=== PATIENT | female | born 1980 ===

== ENCOUNTER 2022-04-02 18:29 | Emergency (ER) | payer OTHER, SELFPAY ==
--- OUTSIDE RECORDS SUMMARY | 2022-04-02 19:15 | XMS_ITS | Continuity of Care Document ---
:1980 Author Organization [facility] ter Address Unavailable , Care Team Providers Name Role Phone No PCP, No PCP Primary Care Physician Unavailable Encounter Date(s): 05/29/21 - 05/29/21 [facility] [address] [place], [place] [address] Discharge Disposition: Home or Self Care Attending Physician: MARK GARCIA MD Admitting Physician: MARK GARCIA MD Allergies, Adverse Reactions, Alerts Substance Reaction Severity Status codeine Shortness of breath Active Hives amoxicillin hives Active severe vomiting penicillin Shortness of breath Active hives sulfa drugs hives Active severe vomiting oxyCODONE Hives Mild Active Vomiting Medications Misc Med 1tab, Oral, 6 Times Each Day, [employer] REMEDY for anxiety, 0 Refill(s) Start Date: 12/26/19 Status: Ordered Problem List Condition Effective Dates Status Health Status Informant Anxiety(Confirmed) Active Procedures Procedure Date Related Diagnosis Body Site Status exam under anesthesia evacuation of 03/05/20 Completed hematoma repair of vaginal cuff HYSTERECTOMY LAPAROSCOPIC WITH BSO AND 02/13/20 Completed CYSTOSCOPY NEEDLE CORE BX OF LEFT BREAST 2017 Completed D&C 2014 Completed cyst removal right knee 2012 Comp leted Social History Social History Type Response Smoking Status Never smoker entered on: 12/26/19 Sex Female
--- OUTSIDE RECORDS SUMMARY | 2022-04-02 19:15 | XMS_ITS ---
:1980 Author Care Team Providers Name Role Phone BRENDA HUTTON Primary Care Provider [phone] Allergies Code Code System Name Reaction Severity Status Onset 2670 RxNorm Codeine Vomiting ? Active ? PEN-VEE K Anaphylaxis ? Active ? Sulfa (Sulfonamide Hives ? Active ? Antibiotics) Medications Name Status Start Date Stop Date ? ? Ozempic 0.25 mg or 0.5 mg (2 mg/1.5 mL) subcutaneous pen injecto r Active ? Not available inject 0.5 milligrams subcutaneously every week Problems Name Status Onset Date Source ? Exercise-induced Asthma Active 06/27/2021 ? Cyst of Ovary Active 06/27/2021 ? Simple Endometrial Hyperplasia Unknown 06/27/2021 ? Ganglion Cyst Unknown 06/27/2021 ? Obese Active 08/27/2021 ? Procedures Date Name Performed by ? ? Excision of Gallegos's Cyst of Knee Informa tion not available ? Hysterectomy Information not avai lable Notes: 01/2020 Results Lab Results Date Name Specimen Result Interpretation Description Value Range Status Address ? 08/13/2021 CBC W/ Auto ? CBC Auto Diff ? ? Final [place] Diff W Reflex Hospital Lab: [address] [place] ? ? ? Wbc 9.5 x10^3 4.5 - Final [facility]eld 11.0 Hospital x10^3 Lab: [address] [place] ? ? ? Rbc 4.26 3.70 - Final [place] x10^6 5.10 Hospital x10^6 Lab: [address] [place] ? ? ? Hemoglobin 14.2 g/dL 11.0 - Final [facility] 15.0 Hospital g/dL Lab: [address] [place] ? ? ? Hematocrit 43.4 % 34.0 - Final [facility] 46.0 % Hospital Lab: [address] [place] ? ? High Mcv 101.9 fL 80.0 - Final [place] 100 fL Hospital Lab: [address], [place] ? ? High Mch 33.3 pg 25.0 - Final [place] 33.0 pg Hospital Lab: [address], [place] ? ? ? Mchc 32.7 g/dL 31.0 - Final [place] 36.0 Hospital g/dL Lab: [address], [place] ? ? ? Rdw 12.0 % 0.0 - Final [place] 15.0 % Hospital Lab: [address], [place] ? ? ? Platelets 271 x10^3 130 - Final [facility] 400 Hospital x10^3 Lab: [address], [place] ? ? ? %Neut 69 % 40 - 75 Final [place] % Hospital Lab: [address], [place] ? ? ? %Lymph 22 % 15 - 50 Final [place] % Hospital Lab: [address], [place] ? ? ? %Brown 8 % 0 - 10 % Final [place] [facility] Lab: [address], [place] ? ? ? %Eos 1 % 0 - 7 % Final [place] [facility] Lab: [address], [place] ? ? ? %Baso 0 % 0 - 2 % Final [place] [facility] Lab: [address], [place] ? ? ? %Ig 0.4 % 0.0 - Final [place] 2.0 % Hospital Lab: [address], [place] ? ? ? %Nrbc 0 % 0 - 2 % Final [place] [facility] Lab: [address], [place] ? ? ? #Neut 6.5 x10^3 1.8 - Final [place] 7.0 Hospital x10^3 Lab: [address], [place] ? ? ? #Lymph 2.1 x10^3 1.0 - Final [place] 4.0 Hospital x10^3 Lab: [address], [place] ? ? ? #Brown 0.7 x10^3 0.0 - Final [place] 0.8 Hospital x10^3 Lab: [address], [place] ? ? ? #Eos 0.1 x10^3 0.0 - Final [place] 0.4 Hospital x10^3 Lab: [address], [place] ? ? ? #Baso 0.0 x10^3 0.0 - Final [place] 0.2 Hospital x10^3 Lab: [address] ? ? ? #Ig 0.0 x10^3 0.0 - Final [place] 0.1 Hospital x10^3 Lab: [address] [place] [address] ? ? ? #Nrbc 0.000 0.000 - Final [place] X10^3 0.012 Hospital X10^3 Lab: [address] ? ? ? Manual Diff not ? Final [place] [facility] Lab: [address] ? ? ? RBC Morph not ? Final [place] indicated [facility] Lab: [address] [place] [place] 08/13/2021 TSH, 2Nd ? Tsh 1.14 0.36 - Final [place] Generation, uIU/mL 3.74 Hospi jelena QN, Serum or uIU/mL Lab: [address] [place] 08/13/2021 T4, Free, ? T4 Free 0.92 0.76 - Final [place] Serum NG/dL 1.46 Hospital NG/dL Lab: [address] [place] 08/13/2021 CMP, Serum ? Comprehensive ? ? F inal [place] or Plasma Metab Panel Ho [facility] Lab: [address] [place] ? ? ? Glucose 92 mg/dL 74 - 106 Final [place] mg/dL Hospital Lab: [address] [place] ? ? High Bun 19 mg/dL 7 - 18 Final [facility] eld mg/dL Hospital Lab: [address] ? ? ? Creatinine 0.83 0.55 - Final [place] mg/dL 1.02 Hospital mg/dL Lab: [address] [place] ? ? ? Sodium 136 136 - Final [facility] mmol/L 145 Hospital mmol/L Lab: [address], [place] ? ? ? Potassium 4.5 3.5 - Final [facility] mmol/L 5.1 Hospital mmol/L Lab: [address] [place] [address] ? ? ? Chloride 100 98 - 107 Final [place] mmol/L mmol/L Hospital Lab: [address], [place] ? ? ? Co2 28 mmol/L 21 - 32 Final [facility] mmol/L Hospital Lab: [address], [place] ? ? ? Calcium 9.3 mg/dL 8.5 - Final [facility] 10.1 [facility] mg/dL Lab: [address], [place] ? ? ? Total Protein 8.0 g/dL 6.4 - Final [place] 8.2 g/dL Hospital Lab: [address], [place] ? ? ? Albumin 4.1 g/dL 3.4 - Final [facility] 5.0 g/dL Hospital Lab: [address], [place] ? ? ? Total Bili 0.4 mg/dL 0.2 - Final [facility] 1.0 [facility] mg/dL Lab: [address], [place] ? ? ? Alkaline Phos 75 U/L 46 - 116 Final [place] U/L [facility] Lab: [address], [place] ? ? ? SGPT/ALT 35 U/L 12 - 78 Final [facility] U/L [facility] Lab: [address], [place] ? ? ? SGOT/AST 21 U/L 0 - 40 Final [facility] U/L [facility] Lab: [address], [place] ? ? ? Age 40 yrs ? Final [facility] Lab: [address], [place] ? ? ? Egfr Non-afr 75 ? Final [facility] Lab: [address], [place] ? ? ? eGFR Afr-amer 91 ? Final [facility] Lab: [address], [place] 08/13/2021 Borrelia Blood ? Lyme Antibody negative negative Final [place] [facility], Qual Lab: [address], [address], [place] Past Encounters Encounter Date Diagnosis Provider 09/26/2021 Obese BRENNEN Umana C: [address] [facility] [phone], Ph. 08/27/2021 Obese BRENNEN Umana C: [address] [facility] [phone], Ph. 08/13/2021 Seen in Primary Care Establishment; Lorenza Chen, PAC: [address] [facility], [facility] [phone], Ph. 05/16/2021 Elevated Blood Pressure Juana Dobbs , PAC: [address] [facility], [facility] [phone], Ph. Social History Tobacco Smoking Status Former Smoker Notes: intermit tent since 19 years old stopped about 5 year s ago -- 1 pack would last 3 months Vaccine List None recorded. Plan of Care Reminders Provider Appointments None recorded. ? ? Lab None recorded. ? ? Referral None recorded. ? ? Procedures None recorded. ? ? Surgeries None recorded. ? ? Imaging None recorded. ? ? Vitals 08/13/2021 02:00PM NEW PATIENT 38 Weight Blood Pressure 86.18 kg 112/80 mm[Hg] 05/16/2021 04:40PM WALK IN VISIT Weight Blood Pressure 84.82 kg (1) 135/92 mm[Hg] (2) 118/82 mm[Hg]
--- OUTSIDE RECORDS SUMMARY | 2022-04-02 19:15 | XMS_ITS | Continuity of Care Document ---
:1980 Author Organization [facility] ter Address Unavailable , Care Team Providers Name Role Phone No PCP, No PCP Primary Care Physician Unavailable Encounter Date(s): 12/01/21 - 12/01/21 [facility] [address] [place], [place] [address] [facility] Discharge Disposition: Home or Self Care Attending Physician: RAYMOND ARIAS MD Admitting Physician: RAYMOND ARIAS MD Allergies, Adverse Reactions, Alerts Substance Reaction [...] cyst removal right knee 2012 Comp leted Results Radiology Reports Exam Date Time Procedure Performing Provider Status 12/01/21 1:35 PM US Breast Limited RT - 63424 Mod ified US Breast Limited RT - [id number] PROCEDURE: US Breast Limited RT - [id number] CLINICAL INDICATION: s/t f/u RT breast 1.1 cm oval-shaped mass COMPARISON: Ultrasound 05/29/2021 FINDINGS: As seen on the prior study there is a homogeneous isoechoic mass in the right breast at the 3 to 4:00 position, 1- 2 cm from the nipple which measures approximately 1.2 x 1.5 x 1.2 cm. Given differences in imaging technique this has not significantly increased in size. No posterior acoustic shadowing. No new lesions are identified. IMPRESSION: Grossly unchanged appearance of a lesion in the right breast. BI-RADS 3 PROBABLY BENIGN Recommendation: Recommend 6 month follow-up ultrasound of the right breast. This can be performed at the time of the patient's annual mammographic screening. Electronically Signed by: Klaus Vaughan DO 12/01/2021 2:01 PM Social History Social History Type Response Smoking Status Never smoker entered on: 12/26/19 Sex Female US Breast - right limited Event Display: US Breast Limited RT - [id number] Authored Date: [id number] PROCEDURE: US Breast Limited RT - [id number] CLINICAL INDICATION: s/t f/u RT breast 1.1 cm oval-shaped mass COMPARISON: Ultrasound 05/29/2021 FINDINGS: As seen on the prior study there is a homogeneous isoechoic mass in the right breast at the 3 to 4:00 position, 1- 2 cm from the nipple which measures approximately 1.2 x 1.5 x 1.2 cm. Given differences in imaging technique this has not significantly increased in size. No posterior acoustic shadowing. No new lesions are identified. IMPRESSION: Grossly unchanged appearance of a lesion in the right breast. BI-RADS 3 PROBABLY BENIGN Recommendation: Recommend 6 month follow-up ultrasound of the right breast. This can be performed at the time of the patient's annual mammographic screening. Electronically Signed by: Klaus Vaughan DO 12/01/2021 2:01 PM Care Team Care Team PersonnelName: No PCP No PCP, Med Service: NO LOCAL PCP Member Role: Primary Care Physician Name: RAYMOND ARIAS MD Position: Physician - [employer] Member Role: Admitting Physician Address: Address: [address] [place] [phone] [place] Care Team Related PersonsName: LVARIELLEY Address: Home [address] [place] [phone]
--- OUTSIDE RECORDS SUMMARY | 2022-04-02 19:15 | XMS_ITS | Continuity of Care Document ---
:1980 Author Organization [facility] ter Address Unavailable , Care Team Providers Name Role Phone No PCP, No PCP Primary Care Physician Unavailable Encounter Date(s): 05/27/21 - 05/27/21 [facility] [address] [place], [place] [address] [facility] Discharge Disposition: Home or Self Care [...]
== END 2022-04-02 19:42 | disposition left against medical advice (07) ==
PROVIDERS: Emergency Provider Emergency Medicine
DX: Z04.9 Encounter for examination and observation for unspecified reason (principal)